=== PATIENT | female | born 1995 | race Caucasian/White ===

== ENCOUNTER 2017-05-26 00:04 | Emergency (ER) | payer OTHER ==
[~2017-05-26] VITALS: Ht 165.1 cm; Wt 73.8 kg
[2017-05-26 00:08] VITALS: TEMP 36.5; Ht 165.1 cm; Wt 73.8 kg
[2017-05-26] MEDS ORDERED: CEFTRIAXONE SOD 350MG/ML 1 GM VIAL IM ONE (00:45)
[2017-05-26] MEDS ORDERED: AZITHROMYCIN 250 MG TAB PO ONE (00:45)
[2017-05-26] MEDS ORDERED: AMPH20TA2 PO (00:49)
[2017-05-26] MEDS ORDERED: BCPILLS PO (00:49)
[2017-05-26 01:07] VITALS: BP 110/82; PULSE 95; O2SAT 97
--- NOTE | 2017-05-27 05:51 | EMERGENCY ROOM VISIT NOTE ---
History First contact with patient: 00:12 Chief Complaint: PELVIC PAIN Stated Complaint: PELVIC PAIN History of Present Illness The patient is a 21 year old female who presents to the Emergency Room with complaints of pelvic pain symptoms worsening over the past 3-4 days. The patient reports having unprotected intercourse with a new partner about 2 weeks ago. She states that afterwards she has developed some vaginal irritation and drainage. She is concerned for possible STD versus other etiology. She is not having true abdominal pain, fever, chills, chest pain, chest tightness, or shortness of breath. She denies chance of . She rates her discomfort a 4/10. Review of Systems More than 10 systems were reviewed and otherwise negative with the exception of history of present illness. Past Medical/Surgical History No chronic medical disease Family History No pertinent family history Social History Smoking Status: Never Smoker Occupation Status: [employer] student Current/Historical Medications Scheduled Control Pills ( Control Pills), 1 TAB PO DAILY Scheduled PRN Amphetamine-Dextroamphetamine 20MG (Adderall 20MG), 20 MG PO UD PRN for school Physical Exam Vital Signs Date Time Temp Pulse Resp B/P (MAP) Pulse Ox O2 Delivery O2 Flow Rate FiO2 05/26/17 01:07 95 16 110/82 97 Room Air 05/26/17 00:08 36.5 94 18 117/83 98 Room Air Physical Exam VITALS: Vitals are noted on the nurse's note and reviewed by myself. Vital signs stable. GENERAL: Well-developed, well-nourished, white female, who is in no acute distress and resting comfortably. Patient is cooperative with the examination. NECK: Supple without nuchal rigidity. No lymphadenopathy. No thyromegaly. Cervical spine is nontender. HEART: Regular rate and rhythm without murmurs gallops or rubs. LUNGS: Clear to auscultation bilaterally without wheezes, rales or rhonchi. No retractions or accessory muscle use. ABDOMEN: Positive normal bowel sounds x 4. Soft, nontender, without masses or organomegaly. No guarding or rebound tenderness. : Examination was performed in the presence of a female nursing multi purpose machine operator. Normal-appearing external female genitalia. Vaginal vault is with thick white discharge, which was cultured. Cervix appears mildly irritated but not friable. No ulcerations or lesions. No drainage from the os. No adnexal tenderness. No cervical motion tenderness. Cervical swabs were performed. Medical Decision & Procedures Laboratory Results Test 05/26/17 00:20 Medications Administered Medications (Trade) Dose Ordered Sig/Pilo Route Start Time Stop Time Status Last Admin Dose Admin Ceftriaxone Sodium (Rocephin Im) 250 mg NOW ONCE IM 05/26/17 00:45 05/26/17 00:46 DC 05/26/17 00:45 250 MG Azithromycin (Zithromax Tab) 1,000 mg NOW ONCE PO 05/26/17 00:45 05/26/17 00:46 DC 05/26/17 00:46 1,000 MG ED Course Physical exam and history were performed. Nursing notes, EMR, and Medication List were personally reviewed. Patient appears to have vaginal drainage and irritation following unprotected intercourse 2 weeks ago. The patient does not appear with a friable cervix, nor did she have cervical motion tenderness. Cultures were obtained and sent to the lab. The patient was given IM Rocephin and oral Zithromax here in the departure pending cultures. She is to follow-up with HEALTH COORDINATOR for further care and management. She was otherwise invited back to the ER with any new, worsening, or concerning symptoms. The chart was completed utilizing [employer] Voice Recognition Software. Grammatical errors, random word insertions, pronoun errors, and incomplete sentences are an occasional consequence of this system due to software limitations, ambient noise, and hardware issues. Any formal questions or concerns about the content, text, or information contained within the body of this dictation should be directly addressed to the provider for clarification. . Medical Decision Differential diagnosis: Etiologies such as STD, bacterial or viral infection, PID, UTI, menses, and others Impression Primary Impression: Pelvic pain Departure Information Dispostion Home / Self-Care Condition GOOD Forms HOME CARE DOCUMENTATION FORM, IMPORTANT VISIT INFORMATION Patient Instructions My [facility] Additional Instructions You were seen and evaluated today on an emergency basis only. This is not a substitute for, or an effort to provide, complete comprehensive medical care. It is not possible to recognize and treat all injuries or illnesses in a single emergency department visit. For this reason it is recommended that you followup with your primary care physician or HEALTH COORDINATOR for ongoing care and evaluation. Your culture results should be available in 2-3 days You are welcome to return to the emergency department anytime with new, worsening, or concerning symptoms.
== END 2017-05-26 01:08 | disposition home or self-care (01) ==
LOC: C.EDB 00:05 → C.EDA 01:08
DX: R10.2 Pelvic and perineal pain (principal)

== ENCOUNTER → 2017-05-27 | Outpatient (CLI) | payer OTHER ==
[~2017-05-27] MED LIST: AMPH20TA2 PO; BCPILLS PO
== END | disposition home or self-care (01) ==
LOC: C.PAPS 16:02
PROVIDERS: ATTEND Obstetrics & Gynecology
DX: Z12.4 Encounter for screening for malignant neoplasm of cervix (principal)

== ENCOUNTER → 2017-05-27 | Outpatient (CLI) | payer OTHER | END | disposition home or self-care (01) | LOC: C.LABSPEC 13:45 | PROVIDERS: ATTEND Obstetrics & Gynecology | DX: N89.8 Other specified noninflammatory disorders of vagina (principal); R10.2 Pelvic and perineal pain ==